=== PATIENT | female | born 1970 | race Caucasian/White ===

== ENCOUNTER 2017-11-07 20:28 | Emergency (ER) | payer OTHER ==
[~2017-11-07] VITALS: Ht 154.9 cm; Wt 83.8 kg
[~2017-11-07 20:28] MED LIST: ALBUTEROL SULF8.5 GM IH; ZITHROMAX Z-PA250 MG PO
[2017-11-07 21:00] LABS: HEMATOCRIT 38.4 % (36.0-46.0); HEMOGLOBIN 13.1 G/DL (11.9-15.5); MCH 30.2 PG (29.0-34.0); MCHC 34.1 G/DL (30.0-36.0); MCV 88.5 FL (83-99); RED BLOOD COUNT 4.34 M/uL (3.80-5.20); WHITE BLOOD COUNT 16.9 K/uL (4.1-10.2)
[2017-11-07 21:14] LABS: APPEARANCE CLOUDY ((CLEAR)); BILIRUBIN NEGATIVE; BLOOD NEGATIVE; COLOR YELLOW ((YELLOW)); GLUCOSE (STRIP) NEGATIVE; KETONES NEGATIVE; LEUKOCYTES MODERATE; NITRITE NEGATIVE; PROTEIN (STRIP) NEGATIVE; SPECIFIC GRAVITY 1.016 (1.000-1.030); UROBILINOGEN 0.2 MG/DL (0.2-1.0)
[2017-11-07 21:16] LABS: ALBUMIN 3.9 g/dL (3.2-4.8)
[2017-11-07 21:17] LABS: CHLORIDE 106 mEq/L (99-109); POTASSIUM 3.5 mEq/L (3.7-5.4); SODIUM 139 mEq/L (136-147)
[2017-11-07 21:19] LABS: GLUCOSE 139 mg/dL (70-99); TOTAL PROTEIN 6.2 g/dL (6.4-8.3)
[2017-11-07 21:21] LABS: TOTAL BILIRUBIN 0.2 mg/dL (0.0-1.0)
[2017-11-07 21:22] LABS: ALKALINE PHOSPHATASE 75 IU/L (3-129)
[2017-11-07 21:23] LABS: BACTERIA RARE /HPF; EPITHELIAL CELLS 2+ /HPF; MUCUS TRACE /LPF; UCUL ADDED? YES; WHITE BLOOD CELLS TNTC /HPF (0-5)
[2017-11-07 21:23] LABS: CREATININE 0.9 mg/dL (0.6-1.3); GFR ESTIMATE (CALCULATED) > 59 mL/min/
[2017-11-07 21:24] LABS: AST (GOT) 21 IU/L (2-34); UREA NITROGEN (BUN) 10 mg/dL (9-23)
[2017-11-07 21:25] LABS: ALT (GPT) 15 IU/L (3-49)
[2017-11-07 21:31] LABS: QUANTITATIVE HCG < 4.0 MIU/ML
[2017-11-07 22:12] LABS: PLATELET COUNT 288 K/uL (156-360)
[2017-11-07] MEDS ORDERED: PERCOCET 5/31 TABLET PO (23:05)
[2017-11-07] MEDS ORDERED: ZOFRAN ODT4 MG PO (23:05)
[2017-11-07] MEDS ORDERED: MOTRIN600 MG PO (23:05)
[2017-11-07] MEDS ORDERED: BACTRIM,SEPT1 TABLET PO (23:05)
[2017-11-07] MEDS ORDERED: FLOMAX0.4 MG PO (23:05)
[2017-11-08 00:14] VITALS: BP 123/75
== END 2017-11-08 00:16 | disposition home or self-care (01) ==
LOC: EME 20:28
PROVIDERS: Nurse Practitioner Acute Care
DX: N13.2 Hydronephrosis with renal and ureteral calculous obstruction (principal); Z87.442 Personal history of urinary calculi
CPT/HCPCS: 74176; 80053; 81003; 84702; 85027; 87077; 87086; 87186; 99281; 99285; J1885

== ENCOUNTER 2017-11-10 13:45 | Inpatient (IN) | payer OTHER ==
[~2017-11-10] VITALS: Ht 154.9 cm; Wt 89.0 kg
[~2017-11-10 13:45] MED LIST changes: +BACTRIM,SEPT1 TABLET PO; +FLOMAX0.4 MG PO; +MOTRIN600 MG PO; +PERCOCET 5/31 TABLET PO; +ZOFRAN ODT4 MG PO
[2017-11-10 15:32] LABS: HEMATOCRIT 33.5 % (36.0-46.0); HEMOGLOBIN 11.9 G/DL (11.9-15.5); MCH 30.3 PG (29.0-34.0); MCHC 35.5 G/DL (30.0-36.0); MCV 85.2 FL (83-99); RBC DIS.WIDTH-CV 12.1 % (11.8-14.6); RBC DIS.WIDTH-SD 37.8 % (39-53); RED BLOOD COUNT 3.93 M/uL (3.80-5.20); WHITE BLOOD COUNT 4.8 K/uL (4.1-10.2)
[2017-11-10 15:39] LABS: CHLORIDE 100 mEq/L (99-109); POTASSIUM 2.8 mEq/L (3.7-5.4); SODIUM 134 mEq/L (136-147)
[2017-11-10 15:45] LABS: CREATININE 3.1 mg/dL (0.6-1.3); GFR ESTIMATE (CALCULATED) 17 mL/min/; GLUCOSE 80 mg/dL (70-99)
[2017-11-10 15:48] LABS: UREA NITROGEN (BUN) 34 mg/dL (9-23)
[2017-11-10 15:56] LABS: QUANTITATIVE HCG < 4.0 MIU/ML
[2017-11-10 16:32] LABS: PLATELET CLUMPS PRESENT - PLATELET COUNT APPEARS ADQ.; PLATELET COUNT UNABLE TO REPORT K/uL (156-360)
[2017-11-10] MEDS ORDERED: FLOMAX0.4 MG PO (17:22)
[2017-11-10 19:57] LABS: APPEARANCE CLOUDY ((CLEAR)); BILIRUBIN NEGATIVE; BLOOD MODERATE; COLOR YELLOW ((YELLOW)); GLUCOSE (STRIP) NEGATIVE; KETONES 5; LEUKOCYTES LARGE; NITRITE NEGATIVE; PROTEIN (STRIP) 100; SPECIFIC GRAVITY 1.014 (1.000-1.030)
[2017-11-10 20:33] LABS: BACTERIA 3+ /HPF; EPITHELIAL CELLS 2+ /HPF; MUCUS NONE SEEN /LPF; UCUL ADDED? YES; WHITE BLOOD CELLS TNTC /HPF (0-5)
[2017-11-10 22:00] VITALS: BP 92/55
[2017-11-10 23:47] VITALS: BP 89/53
[2017-11-11] VITALS (10 sets, daily range): BP systolic 76–113; BP diastolic 45–66
[2017-11-11 01:10] LABS: CHLORIDE 106 mEq/L (99-109); SODIUM 136 mEq/L (136-147)
[2017-11-11 01:11] LABS: GLUCOSE 78 mg/dL (70-99)
[2017-11-11 01:13] LABS: POTASSIUM 3.9 mEq/L (3.7-5.4)
[2017-11-11 01:15] LABS: GFR ESTIMATE (CALCULATED) 18 mL/min/
[2017-11-11 01:16] LABS: UREA NITROGEN (BUN) 36 mg/dL (9-23)
[2017-11-11 06:30] LABS: ALBUMIN 2.3 G/DL (3.2-4.8); ALKALINE PHOSPHATASE 62 IU/L (3-129); ALT (GPT) 14 IU/L (3-49); AST (GOT) 30 IU/L (2-34); CHLORIDE 106 MEQ/L (99-109); GFR ESTIMATE (CALCULATED) 18 mL/min/; GLUCOSE 56 mg/dL (70-99); POTASSIUM 3.9 MEQ/L (3.7-5.4); SODIUM 136 MEQ/L (136-147); TOTAL BILIRUBIN 0.4 MG/DL (0.0-1.0); TOTAL PROTEIN 4.4 G/DL (6.4-8.3); UREA NITROGEN (BUN) 37 mg/dL (9-23)
[2017-11-11 07:02] LABS: HEMATOCRIT 29.3 % (36.0-46.0); MCH 29.4 PG (29.0-34.0); MCHC 33.4 G/DL (30.0-36.0); RBC DIS.WIDTH-CV 12.8 % (11.8-14.6); RBC DIS.WIDTH-SD 41.6 % (39-53); RED BLOOD COUNT 3.33 M/uL (3.80-5.20); WHITE BLOOD COUNT 8.2 K/uL (4.1-10.2)
[2017-11-11 07:08] LABS: HEMOGLOBIN 9.8 G/DL (11.9-15.5); PLATELET COUNT 122 K/uL (156-360)
[2017-11-12 03:25] VITALS: BP 111/70
[2017-11-12 06:54] LABS: HEMATOCRIT 30.3 % (36.0-46.0); HEMOGLOBIN 10.3 G/DL (11.9-15.5); MCH 29.2 PG (29.0-34.0); MCV 85.8 FL (83-99); PLATELET COUNT 130 K/uL (156-360); RBC DIS.WIDTH-CV 13.1 % (11.8-14.6); RBC DIS.WIDTH-SD 40.8 % (39-53); RED BLOOD COUNT 3.53 M/uL (3.80-5.20)
[2017-11-12 07:23] LABS: CHLORIDE 112 MEQ/L (99-109); POTASSIUM 4.3 MEQ/L (3.7-5.4); SODIUM 139 MEQ/L (136-147); UREA NITROGEN (BUN) 33 mg/dL (9-23)
[2017-11-12 07:24] LABS: ABS NEUTROPHIL COUNT 7.4; ANISOCYTOSIS 1+; BAND NEUTROPHILS 15.9 % (0-8.0); BASOPHILS 0.9 %; EOSINOPHIL ABS CT 0; LYMPHOCYTES 2.7 % (15.0-45.0); METAMYELOCYTES 0.9 %; MONOCYTES 3.5 % (0-9.0); PLAT.SUFFICIENCY DECREASED; SEG.NEUTROPHILS 76.1 % (46.0-76.0)
[2017-11-12 07:29] VITALS: BP 111/68
[2017-11-12 07:33] LABS: CREATININE 2.3 MG/DL (0.6-1.3); GFR ESTIMATE (CALCULATED) 24 mL/min/; GLUCOSE 111 mg/dL (70-99)
[2017-11-12 11:48] VITALS: BP 128/63
[2017-11-12 16:55] VITALS: BP 134/76
[2017-11-13] VITALS: BP 100/58
[2017-11-13 06:50] LABS: HEMATOCRIT 28.7 % (36.0-46.0); HEMOGLOBIN 9.8 G/DL (11.9-15.5); MCH 29.5 PG (29.0-34.0); MCHC 34.1 G/DL (30.0-36.0); MCV 86.4 FL (83-99); PLATELET COUNT 158 K/uL (156-360); RBC DIS.WIDTH-CV 13.3 % (11.8-14.6); RBC DIS.WIDTH-SD 41.5 % (39-53); RED BLOOD COUNT 3.32 M/uL (3.80-5.20)
[2017-11-13 07:07] LABS: CHLORIDE 114 MEQ/L (99-109); SODIUM 141 MEQ/L (136-147); UREA NITROGEN (BUN) 27 mg/dL (9-23)
[2017-11-13 07:09] LABS: CREATININE 1.5 MG/DL (0.6-1.3); GFR ESTIMATE (CALCULATED) 40 mL/min/; GLUCOSE 80 mg/dL (70-99); POTASSIUM 3.4 MEQ/L (3.7-5.4)
[2017-11-13 07:17] LABS: BASOPHIL (%) 0.7 % (0-1); BASOPHIL COUNT 0.1 K/uL (0-0.1); EOSINOPHIL COUNT 0.1 K/uL (0-0.3); IMMATURE GRANULOCYTE (%) 1.1 % (0.0-0.7); LYMPHOCYTE (%) 17.8 % (15-42); LYMPHOCYTE COUNT 1.8 K/uL (1.0-2.8); MONOCYTE (%) 11.9 % (3-12); MONOCYTE COUNT 1.2 K/uL (0-0.8); NEUTROPHIL (%) 67.5 % (45-76); NEUTROPHIL COUNT 6.7 K/uL (1.8-6.4)
[2017-11-13 07:20] VITALS: BP 107/58
[2017-11-13 11:00] VITALS: BP 129/73
[2017-11-13 15:00] VITALS: BP 122/79
[2017-11-14 00:13] VITALS: BP 118/72
[2017-11-14 06:16] LABS: TROP-I INTERPRETATION NEGATIVE; TROPONIN-I 0.03 ng/mL (0.0-0.30)
[2017-11-14 07:09] LABS: ALBUMIN 2.3 G/DL (3.2-4.8); ALKALINE PHOSPHATASE 59 IU/L (3-129); ALT (GPT) 14 IU/L (3-49); AST (GOT) 20 IU/L (2-34); DIRECT BILIRUBIN 0.2 mg/dL (0.0-0.3); TOTAL BILIRUBIN 0.4 MG/DL (0.0-1.0); TOTAL PROTEIN 4.7 G/DL (6.4-8.3)
[2017-11-14 07:10] LABS: CHLORIDE 112 MEQ/L (99-109); CREATININE 1.1 MG/DL (0.6-1.3); GFR ESTIMATE (CALCULATED) 57 mL/min/; GLUCOSE 74 mg/dL (70-99); POTASSIUM 3.8 MEQ/L (3.7-5.4); SODIUM 143 MEQ/L (136-147); UREA NITROGEN (BUN) 18 mg/dL (9-23)
[2017-11-14 07:15] VITALS: BP 121/63
[2017-11-14 08:19] VITALS: BP 108/57
[2017-11-14 11:25] VITALS: BP 137/77
[2017-11-14 15:58] VITALS: BP 116/63
[2017-11-14 22:48] VITALS: BP 130/70
[2017-11-15 07:27] VITALS: BP 146/84
[2017-11-15] MEDS ORDERED: LASIX20 MG PO (10:16)
[2017-11-15] MEDS ORDERED: KEFLEX250 MG PO (10:16)
== END 2017-11-15 12:30 | disposition home or self-care (01) | DRG 872 ==
LOC: EME 13:45 → 5EAST 18:56 → EDOF 18:56 → ENRESERV 18:58 → 5EAST 21:19 → ENPENDDIS 11-15 → 5EAST 11-15 12:30
PROVIDERS: Hospitalist; Internal Medicine
PROC: 0T778DZ Dilation of Left Ureter with Intraluminal Device, Via Natural or Artificial Opening Endoscopic (ICD-10-PCS; principal; 2017-11-11)
DX: A41.9 Sepsis, unspecified organism (principal); N17.9 Acute kidney failure, unspecified; N39.0 Urinary tract infection, site not specified; N13.2 Hydronephrosis with renal and ureteral calculous obstruction; R65.20 Severe sepsis without septic shock; E87.6 Hypokalemia; E87.1 Hypo-osmolality and hyponatremia; Z87.442 Personal history of urinary calculi; B96.20 Unspecified Escherichia coli [E. coli] as the cause of diseases classified elsewhere; E83.51 Hypocalcemia; E87.2 Acidosis; D64.9 Anemia, unspecified; J90 Pleural effusion, not elsewhere classified
CPT/HCPCS: 71045; 71250; 74176; 76770; 78227; 80048; 80048 91; 80053; 80076; 81003; 82948; 83605; 83880; 84484; 84702; 85025; 85027; 87040; 87077; 87086; 87186; 93306; 94640; 99202; 99281; 99285; A9537; J0131; J0610; J0696; J1100; J1644; J1885; J1940; J2250; J2405; J2805; J3010; J3480; J7030; J7050; S0028

== ENCOUNTER 2017-11-27 08:07 | Day surgery (SDC) | payer OTHER ==
[~2017-11-27] VITALS: Ht 154.9 cm; Wt 79.4 kg
[~2017-11-27 08:07] MED LIST changes: +KEFLEX250 MG PO; +LASIX20 MG PO; +NITROFURANTOIN100 MG PO
[2017-11-27 08:36] VITALS: BP 120/82
[2017-11-27 12:05] VITALS: BP 102/67
[2017-11-27 13:10] VITALS: BP 110/67
[2017-11-27 13:15] VITALS: BP 113/81; BP 97/80
== END 2017-11-27 13:22 | disposition home or self-care (01) ==
LOC: SDC 08:07
PROVIDERS: Urology
PROC: 0TC78ZZ Extirpation of Matter from Left Ureter, Via Natural or Artificial Opening Endoscopic (ICD-10-PCS; principal; 2017-11-27)
DX: N13.2 Hydronephrosis with renal and ureteral calculous obstruction (principal); J98.11 Atelectasis
CPT/HCPCS: 82365 90; J0330; J0690; J1100; J1170; J2250; J3010